=== PATIENT | male | born 1990 | race Caucasian/White ===

== ENCOUNTER 2022-07-22 01:36 | Emergency (ER) | payer SELFPAY ==
[~2022-07-22] VITALS: Ht 160 cm; Wt 81.6 kg
[2022-07-22 01:40] VITALS: BP 152/90
[2022-07-22] MEDS ORDERED: KETOROLAC 15 MG/ML VIAL IM ONE (03:40)
[2022-07-22] MEDS ORDERED: IBUP-2213 PO (05:44)
== END 2022-07-22 05:57 | disposition home or self-care (01) ==
LOC: MED 01:36 → EDSEX 01:36 → MED 05:57
DX: S50.12XA Contusion of left forearm, initial encounter (principal); X58.XXXA Exposure to other specified factors, initial encounter; Y93.89 Activity, other specified; Y92.89 Other specified places as the place of occurrence of the external cause; Y99.8 Other external cause status
CPT/HCPCS: 29125; 73080; 73090; 73130; 96372; 99284; J1885; Q0092

== ENCOUNTER 2024-03-05 23:30 | Emergency (ER) | payer OTHER, MEDICAID ==
[~2024-03-05] VITALS: Ht 160 cm; Wt 66.2 kg
[~2024-03-05 23:30] MED LIST: IBUP-2213 PO
[2024-03-05 23:36] VITALS: BP 117/76; PULSE 111; RESP 18; TEMP 99.1; O2SAT 98
[2024-03-06 00:18] LABS: BASOPHILS % (AUTO) 0.1 % (0.0-2.0); EOSINOPHILS # (AUTO) 0.1 K/uL (0-0.4); EOSINOPHILS % (AUTO) 0.6 % (0.0-4.0); HEMATOCRIT 41.7 % (36-52); HEMOGLOBIN 14.5 g/dL (12.0-18.0); LYMPHOCYTES # (AUTO) 0.8 K/uL (2.0-11.5); LYMPHOCYTES % (AUTO) 8.3 % (20.5-51.1); MEAN CORPUSCULAR HEMOGLOBIN 30 pg (27-31); MEAN CORPUSCULAR HGB CONC 35 g/dL (33-37); MEAN CORPUSCULAR VOLUME 84.9 fL (80-94); MONOCYTES # (AUTO) 0.9 K/uL (0.8-1.0); MONOCYTES % (AUTO) 8.6 % (1.7-9.3); NEUTROPHILS # (AUTO) 8.2 K/uL (1.8-7.7); NEUTROPHILS % (AUTO) 82.4 % (42.2-75.2); PLATELET COUNT (AUTO) 203 K/uL (140-450); RED BLOOD CELL COUNT(AUTO) 4.91 MIL/uL (4.20-6.10); RED CELL DISTRIBUTION WIDTH 13.3 % (11.6-13.7)
[2024-03-06 00:36] LABS: APPEARANCE,URINE CLEAR (CLEAR); BILIRUBIN,URINE NEGATIVE (NEGATIVE); BLOOD, URINE NEGATIVE (NEGATIVE); COLOR,URINE YELLOW (YELLOW); LEUKOCYTE ESTERASE ,URINE NEGATIVE (NEGATIVE); NITRITE, URINE NEGATIVE (NEGATIVE); PROTEIN,URINE NEGATIVE (NEGATIVE); UGLUCOSE NEGATIVE (NEGATIVE); UROBILINOGEN,URINE 0.2 EU/dL (0.2 - 1)
[2024-03-06] MEDS: KETOROLAC 30 MG/ML VIAL IM ONE (00:37)
[2024-03-06] MEDS: ONDANSETRON 4 MG ODT PO ONE (00:38)
[2024-03-06 00:48] LABS: ANION GAP 15.7 (8-16); CALCIUM 8.2 mg/dL (8.5-10.1); CARBON DIOXIDE 21.7 mmol/L (21-32); POTASSIUM 3.4 mmol/L (3.5-5.1)
[2024-03-06 00:51] LABS: BILIRUBIN,DIRECT 0.3 mg/dL (0.0-0.3); TOTAL BILIRUBIN 1.1 mg/dL (0.0-1.0); TOTAL PROTEIN, SERUM 7.7 g/dL (6.4-8.2)
[2024-03-06] MEDS ORDERED: LOPE1TAB14 PO (03:01)
[2024-03-06] MEDS ORDERED: BEN10 PO (03:01)
[2024-03-06] MEDS ORDERED: ONDA-188 SL (03:01)
[2024-03-06 03:04] VITALS: BP 117/76; PULSE 111; RESP 18; TEMP 99.1; O2SAT 98
== END 2024-03-06 03:04 | disposition home or self-care (01) ==
LOC: MED 23:30
DX: R10.13 Epigastric pain (principal); R19.7 Diarrhea, unspecified; R50.9 Fever, unspecified; M79.18 Myalgia, other site; R11.0 Nausea; R14.0 Abdominal distension (gaseous); Z79.899 Other long term (current) drug therapy
CPT/HCPCS: 36415; 74176; 80048; 80076; 81003; 83690; 85025; 96372; 99285; J1885; Q0162